=== PATIENT | male | born 1980 | race Hispanic/Latino ===

== ENCOUNTER 2024-11-17 08:22 | Emergency (ER) | payer OTHER ==
[~2024-11-17] VITALS: Ht 177.8 cm; Wt 93.9 kg
[2024-11-17] MEDS ORDERED: ADDERALL 10 MG10 MG PO (08:48)
[2024-11-17 09:55] VITALS: BP 167/109
--- OUTSIDE RECORDS SUMMARY | 2024-11-17 10:58 | XMS ---
PreManage Notification: ADIN SMITH Security Er Rn Events No recent Security Events currently on file CRITERIA MET - [facility] [place] - 2 Visits in 30 Days CARE PROVIDERS There are no care providers on record at this time. Nando has no Care Guidelines for this patient. Brittaney VISIT COUNT (12 MO.) 1 [facility] TOTAL 2 NOTE: Visits indicate total known visits. ED/C VISIT TRACKING (12 MO.) 11/17/2024 08:22 [facility] [place] TYPE: Emergency COMPLAINT: - NECK INJURY 11/13/2024 15:20 [facility] [place] TYPE: Emergency DIAGNOSES: - Fall (on) (from) other stairs and steps, initial encounter - Strain of muscle, fascia and tendon at neck level, initial encounter - FALL HIT HEAD AND NECK HURTS INPATIENT VISIT TRACKING (12 MO.) No inpatient visits to display in this time frame [email or web address]
== END 2024-11-17 09:56 | disposition home or self-care (01) ==
LOC: ED 08:22
DX: S16.1XXA Strain of muscle, fascia and tendon at neck level, initial encounter (principal); W10.9XXA Fall (on) (from) unspecified stairs and steps, initial encounter
CPT/HCPCS: 72125; 99283-25